=== PATIENT | male | born 1950 | race Caucasian/White ===

== ENCOUNTER 2016-09-03 03:01 | Emergency (ER) | payer OTHER ==
[2016-09-03] MEDS ORDERED: Aspirin 81 MG Tab.Chew PO ONE (03:12)
[2016-09-03] MEDS ORDERED: Sodium Chloride 0.9% 10 ML Syringe FLUSH PRN (03:13)
[2016-09-03] MEDS: Nitroglycerin 0.4 MG Tab.SL SL PRN ×2 (03:16→03:29)
[2016-09-03] MEDS ORDERED: Nitroglycerin/D5W 25 MG/250 ML BOTTLE ONE (03:22)
[2016-09-03] MEDS ORDERED: Clopidogrel 75 MG Tab PO ONE (03:25)
[2016-09-03] MEDS ORDERED: Nitroglycerin/D5W 25 MG/250 ML BOTTLE IV SCH (03:30)
[2016-09-03] MEDS ORDERED: Heparin Sodium 5,000 Units/ML Vial IVPUSH ONE (03:34)
--- NOTE | 2016-09-03 03:49 | EDM.PDOC ---
[id number] CHEST PAIN Time Seen by Provider: 09/03/16 03:05 Source: Reports: Patient History Limitations: Reports: No limitations - History of Present Illness INITIAL COMMENTS - FREE TEXT/NARRATIVE: Pt arrived with severe pain in the left arm. He had been awaken with the pain in the arm and got progressively worse. Timing/Duration: Reports: Hour(s):, Getting worse Location, General: Reports: upper extremity, left Associated Symptoms: Reports: other (pt was diaphoretic. ) - Related Data Allergies/ADRs: Allergies Allergy/AdvReac Type Severity Reaction Status Date / Time No Known Allergies Allergy Verified 09/03/16 03:17 Home Meds: Home Meds NK [No Known Home Meds] 12/21/14 [History] Social & Family History - Tobacco Use Smoking Status *Q: Heavy Tobacco Smoker Years of Tobacco use: 50 Packs/Tins Daily: 1 - Alcohol Use Days Per Week of Alcohol Use: 5 Number of Drinks Per Day: 2 Total Drinks Per Week: 10 - Recreational Drug Use Recreational Drug Use: No ED ROS GENERAL - Review of Systems Review Of Systems: See Below Constitutional: Reports: no symptoms HEENT: Reports: No symptoms Respiratory: Reports: No Symptoms Cardiovascular: Reports: Other (Pt has severe pain in the left arm. He was diaphoretic. He has not had a previous heart attack. ) Endocrine: Reports: no symptoms GI/Abdominal: Reports: No symptoms : Reports: no symptoms Musculoskeletal: Reports: no symptoms Skin: Reports: no symptoms Neurological: Reports: No Symptoms ED EXAM, GENERAL - Physical Exam Exam: See Below Free Text/Narrative:: Pt arrived with severe left arm pain. He was sweaty. Exam Limited By: No limitations General Appearance: alert, anxious, moderate distress Ears: normal TMs Nose: normal inspection Throat/Mouth: Normal inspection Head: atraumatic Neck: normal inspection Respiratory/Chest: no respiratory distress Cardiovascular: regular rate, rhythm GI/Abdominal: soft, non tender (Male) Exam: Deferred Rectal (Males) Exam: Deferred Back Exam: normal inspection Extremities: normal inspection Neurological: alert, oriented, normal cognition Psychiatric: normal affect Course - Vital Signs Last Recorded V/S: Last Vital Signs Temp 36.1 C 09/03/16 03:17 Pulse 69 09/03/16 03:31 Resp 14 09/03/16 03:31 BP 124/65 03/27/17 03:31 Pulse Ox 92 L 09/03/16 03:31 - Orders/Labs/Meds Labs: Laboratory Tests 09/03/16 09/03/16 09/03/16 Range/Units 03:12 03:12 03:12 WBC 9.2 (4.5-11.0) K/uL RBC 4.72 (4.30-5.90) M/uL Hgb 14.8 (12.0-15.0) g/dL Hct 43.2 (40.0-54.0) % MCV 92 (80-98) fL MCH 31 (27-31) pg MCHC 34 (32-36) % Plt Count 235 (150-400) K/uL Neut % (Auto) 51 (36-66) % Lymph % (Auto) 33 (24-44) % Lassen % (Auto) 11 H (2-6) % Eos % (Auto) 4 (2-4) % Baso % (Auto) 1 (0-1) % PT (9.5-12.0) sec INR (0.80-1.20) APTT (27.0-36.0) sec Sodium 137 L (140-148) mmol/L Potassium 5.9 H (3.6-5.2) mmol/L Chloride 102 (100-108) mmol/L Carbon Dioxide 26 (21-32) mmol/L Anion Gap 8.6 (5.0-14.0) mmol/L BUN 17 (7-18) mg/dL Creatinine 0.8 (0.8-1.3) mg/dL Est Cr Clr Drug Dosing 102.53 mL/min Estimated GFR (MDRD) > 60 (>60) BUN/Creatinine Ratio Cancelled Glucose 122 H (74-106) mg/dL Calcium 8.1 L (8.5-10.1) mg/dL Total Bilirubin 0.5 (0.2-1.0) mg/dL AST 60 H D (15-37) U/L ALT 24 (12-78) U/L Alkaline Phosphatase 109 (46-116) U/L Creatine Kinase 322 H (39-308) U/L Troponin I 0.269 H* (0.000-0.056) ng/mL Total Protein 7.4 (6.4-8.2) g/dL Albumin Cancelled Globulin Cancelled Albumin/Globulin Ratio Cancelled 09/03/16 09/03/16 Range/Units 03:30 03:32 WBC (4.5-11.0) K/uL RBC (4.30-5.90) M/uL Hgb (12.0-15.0) g/dL Hct (40.0-54.0) % MCV (80-98) fL MCH (27-31) pg MCHC (32-36) % Plt Count (150-400) K/uL Neut % (Auto) (36-66) % Lymph % (Auto) (24-44) % Lassen % (Auto) (2-6) % Eos % (Auto) (2-4) % Baso % (Auto) (0-1) % PT 10.1 (9.5-12.0) sec INR 0.95 (0.80-1.20) APTT 25.9 L (27.0-36.0) sec Sodium (140-148) mmol/L Potassium (3.6-5.2) mmol/L Chloride (100-108) mmol/L Carbon Dioxide (21-32) mmol/L Anion Gap (5.0-14.0) mmol/L BUN (7-18) mg/dL Creatinine (0.8-1.3) mg/dL Est Cr Clr Drug Dosing mL/min Estimated GFR (MDRD) (>60) BUN/Creatinine Ratio Glucose (74-106) mg/dL Calcium (8.5-10.1) mg/dL Total Bilirubin (0.2-1.0) mg/dL AST (15-37) U/L ALT (12-78) U/L Alkaline Phosphatase (46-116) U/L Creatine Kinase (39-308) U/L Troponin I (0.000-0.056) ng/mL Total Protein (6.4-8.2) g/dL Albumin Globulin Albumin/Globulin Ratio Meds: Medications Discontinued Medications Generic Name Dose Route Start Last Admin Trade Name Freq PRN Reason Stop Dose Admin Aspirin 324 mg 09/03/16 03:12 09/03/16 03:19 Aspirin PO 09/03/16 03:13 324 mg ONETIME ONE Administration Clopidogrel Bisulfate 600 mg 09/03/16 03:25 09/03/16 03:25 Plavix PO 09/03/16 03:26 600 mg ONETIME ONE Administration Heparin Sodium (Porcine) 4,000 units 09/03/16 03:34 09/03/16 03:35 Heparin Sodium IVPUSH 09/03/16 03:35 4,000 units ONETIME ONE Administration Nitroglycerin/Dextrose 25 mg in 250 mls @ 3 mls/hr 09/03/16 03:30 09/03/16 03 :29 Nitroglycerin 25 Mg/D5w 250 Ml IV 5 mcg/min TITRATE FUNMI 3 mls/hr Protocol Administration 5 MCG/MIN Nitroglycerin/Dextrose Confirm 09/03/16 03:22 09/03/16 03:31 Nitroglycerin 25 Mg/D5w 250 Ml Administered 09/03/16 03:23 Not Given Dose 25 mg in 250 mls @ as directed .ROUTE .STK-MED ONE Nitroglycerin 0.4 mg 09/03/16 03:13 09/03/16 03:29 Nitrostat SL 09/03/16 03:24 0.4 mg Q5M PRN Administration Chest Pain Sodium Chloride 10 ml 09/03/16 03:13 09/03/16 03:20 Saline Flush FLUSH 10 ml ASDIRECTED PRN Administration Keep Vein Open - Re-Assessments/Exams Free Text/Narrative Re-Assessment/Exam: 09/03/16 03:52 pt had acute inferlateral changes on the ekg. He was given asa 324, nitro which took his arm pain away. he had a tridil drip started. he was given plavix 600mg. Heparin bolus 4000units was given his chest xray revealed no infiltrate Departure - Departure Time of Disposition: 03:54 Disposition: DC/Tfer to Acute Hospital 02 Reason for Transfer *Q: Primary PCI Indicated Condition: fair Clinical Impression: Acute inferolateral myocardial infarction Referrals: PCP,None [Primary Care Provider] - Forms: ED Department Discharge Care Plan Goals: transfered to [facility] -- [place]
[2016-09-03 04:20] VITALS: BP 124/65
--- NOTE | 2016-09-03 09:17 | CR ---
Chest 1V Frontal HISTORY: Left arm pain. Comparison: 12/21/2014. FINDINGS: Cardiac size and pulmonary vessels are normal. The lungs are clear. IMPRESSION: Negative AP chest.
== END 2016-09-03 03:40 ==
LOC: JP.ED 03:01
DX: I21.19 ST elevation (STEMI) myocardial infarction involving other coronary artery of inferior wall (principal); F17.210 Nicotine dependence, cigarettes, uncomplicated
CPT/HCPCS: 36415; 71010; 80048; 82247; 82550; 84075; 84155; 84450; 84460; 84484; 85025; 85610; 85730; 93005; 96374; 99285; A9270; J1644; J7050

== ENCOUNTER 2017-01-12 20:00 | Emergency (ER) | payer OTHER ==
[2017-01-12 20:14] VITALS: BP 153/71
[2017-01-12] MEDS ORDERED: Proparacaine 0.5% Ophth Soln 15 ML Bottle EYEBOTH STA (20:20)
[2017-01-12] MEDS ORDERED: Diphtheria,Pertussis(Acell),Tetanus Vaccine 0.5 ML SDV IM ONE (20:46)
--- NOTE | 2017-01-12 20:53 | EDM.PDOC ---
ED HPI GENERAL MEDICAL PROBLEM - General Chief Complaint: ENT Problem Stated Complaint: MED VIA [facility] Time Seen by Provider: 01/12/17 20:20 Source of Information: Reports: Patient, Family, RN Notes Reviewed History Limitations: Reports: No Limitations - History of Present Illness INITIAL COMMENTS - FREE TEXT/NARRATIVE: 66-year-old gentleman presents emergency department today via EMS services for sudden onset of left thigh pain, he was at a restaurant SUDDEN ONSET EYE PAIN RATED IT 8 OUT OF 10 PAIN NOW HAS IMPROVED MAYBE 2 OUT OF 10 HE DID GET A EXACERBATION WITH PAIN WITH THE VISUAL ACUITY TEST BUT NOW HAS RESOLVED Left Eye Pain Score (Numeric/FACES): 1 - Related Data Allergies Allergy/AdvReac Type Severity Reaction Status Date / Time No Known Allergies Allergy Verified 09/03/16 03:17 Home Meds: Home Meds NK [No Known Home Meds] 12/21/14 [History] Past Medical History HEENT History: Reports: Impaired Vision Oncologic (Cancer) History: Reports: Basal Cell Carcinoma - Infectious Disease History Infectious Disease History: Reports: Chicken Pox - Past Surgical History Cardiovascular Surgical History: Reports: Coronary Artery Stent Social & Family History - Family History Family Medical History: Noncontributory - Tobacco Use Smoking Status *Q: Current Every Day Smoker Years of Tobacco use: 50 Packs/Tins Daily: 1 Used Tobacco, but Quit: No Second Hand Smoke Exposure: Yes - Caffeine Use Caffeine Use: Reports: Coffee - Alcohol Use Days Per Week of Alcohol Use: 7 Number of Drinks Per Day: 5 Total Drinks Per Week: 35 Date of Last Drink: 01/12/17 Time of Last Drink: 19:00 - Recreational Drug Use Recreational Drug Use: No ED ROS ENT - Review of Systems Review Of Systems: See Below Constitutional: Reports: No Symptoms HEENT: Reports: Eye Pain Respiratory: Reports: No Symptoms Cardiovascular: Reports: No Symptoms Neurological: Reports: No Symptoms ED EXAM, ENT - Physical Exam Exam: See Below Text/Narrative:: on examination using porcine stain on the castro lamp did appreciate a 5 mm x 2 mm corneal abrasion left eye Exam Limited By: No Limitations General Appearance: Alert, WD/WN, No Apparent Distress Eye Exam: Left Eye: Corneal Abrasion, Bilateral Eye: EOMI, Normal Inspection, PERRL Course - Vital Signs Last Recorded V/S: Last Vital Signs Temp 97.3 F 01/12/17 20:02 Pulse 59 L 01/12/17 20:02 Resp 18 01/12/17 20:02 BP 153/71 H 01/12/17 20:02 Pulse Ox 95 01/12/17 20:02 - Orders/Labs/Meds Orders: Active Orders 24 hr Category Date Time Status Vaccines to be Administered [RC] PER UNIT ROUTINE Care 01/12/17 20:46 Ordered Meds: Medications Discontinued Medications Generic Name Dose Route Start Last Admin Trade Name Segundo PRN Reason Stop Dose Admin Diphtheria/Tetanus/Acell Pertussis 0.5 ml 01/12/17 20:46 Adacel IM 01/12/17 20:47 .ONCE ONE Proparacaine HCl 1 ml 01/12/17 20:20 01/12/17 20:38 Proparacaine 0.5% Ophth Soln EYEBOTH 01/12/17 20:21 2 drop NOW STA Administration Departure - Departure Time of Disposition: 20:52 Disposition: Home, Self-Care 01 Condition: Good Clinical Impression: Corneal abrasion, left Qualifiers: Encounter type: initial encounter Qualified Code(s): S05.02XA - Injury of conjunctiva and corneal abrasion without foreign body, left eye, initial encounter - Discharge Information Forms: ED Department Discharge Additional Instructions: Take full course of antibiotics, use ibuprofen for baseline pain control, use hydrocodone for breakthrough pain, please follow-up with your eye care provider next week for reevaluation 2-3 days - My Orders Last 24 Hours: My Active Orders 01/12/17 20:46 Vaccines to be Administered [RC] PER UNIT ROUTINE - Assessment/Plan Last 24 Hours: My Active Orders 01/12/17 20:46 Vaccines to be Administered [RC] PER UNIT ROUTINE Plan: Assessment Acuity = acute Site and laterality = corneal abrasion left eye Etiology = secondary to trauma Manifestations = pain Location of injury = Home Lab values = none Plan He is placed on gentamicin ophthalmic drops, was provided a tetanus for update and [id number] with his eye care provider on Saturday of Saturday of this week also provided hydrocodone No. 10 for pain Patient was in agreement with the plan all questions were answered, they were instructed to return to the emergency department or call for worsening symptoms. This note was dictated using [employer] voice recognition software please call with any questions.
== END 2017-01-12 21:08 | disposition home or self-care (01) ==
LOC: JP.ED 20:00
DX: S05.02XA Injury of conjunctiva and corneal abrasion without foreign body, left eye, initial encounter (principal); F17.210 Nicotine dependence, cigarettes, uncomplicated; Z85.828 Personal history of other malignant neoplasm of skin; Z95.5 Presence of coronary angioplasty implant and graft; X58.XXXA Exposure to other specified factors, initial encounter
CPT/HCPCS: 90471; 90715; 99284; A9270

== ENCOUNTER 2017-07-05 07:22 | Day surgery (SDC) | payer MEDICARE, BC ==
[2017-07-05] MEDS ORDERED: Lactated Ringers 1,000 ML IV SCH (08:00)
[2017-07-05] MEDS ORDERED: fentaNYL 100 MCG/2 ML SDV ONE (09:06)
[2017-07-05] MEDS ORDERED: Midazolam 1 MG/ML 2 ML SDV ONE (09:06)
[2017-07-05] MEDS ORDERED: Propofol 200 MG/20 ML SDV ONE (09:06)
[2017-07-05 10:38] VITALS: BP 124/66
--- NOTE | 2017-07-05 12:12 | OR ---
DATE OF PROCEDURE: 07/05/2017 PREOPERATIVE DIAGNOSIS: Colon cancer screening. POSTOPERATIVE DIAGNOSIS: Three small colon polyps. PROCEDURE: Colonoscopy to the cecum with biopsy resection of small polyps at 15 , 20, and 40 cm from the anal verge. SURGEON: Caleb Akhtar MD. ANESTHESIA: IV anesthesia with monitored anesthesia care. INDICATION: This 67-year-old white male is referred for a screening colonoscopy. He says his last colonoscopic exam was done more than ten years ago. I counseled him for a colonoscopy with possible biopsy and/or polypectomy including risks and alternatives, and he gave his informed consent to proceed. DESCRIPTION OF PROCEDURE: The patient was placed in the left lateral decubitus position. IV anesthesia was administered by the Anesthesia Service. Time-out was held. A rectal exam was performed, which was unremarkable. The flexible fiberoptic Olympus colonoscope was introduced through his anus, up his rectum, and out his colon all the way to the cecum. En route, at 20 cm from anal verge and at 40 cm from anal verge, we saw small polyps, which were removed with the biopsy forceps. Once the cecum was reached, the scope was slowly withdrawn, examining the mucosa throughout. No other mucosal abnormalities were noted until we reached 15 cm from anal verge. Here, we saw another small polyp, which was removed with the biopsy forceps. All polyps were sent separately to the laboratory. The scope was retroflexed in the rectum with the distal rectum appearing unremarkable. The scope was straightened and removed. He tolerated the procedure well. Caleb Akhtar MD /[id number] MTDD
== END 2017-07-05 10:40 | disposition home or self-care (01) ==
LOC: JP.SDS 07:22
PROVIDERS: ATTEND Surgery
DX: Z12.11 Encounter for screening for malignant neoplasm of colon (principal); D12.6 Benign neoplasm of colon, unspecified; K63.5 Polyp of colon; I25.10 Atherosclerotic heart disease of native coronary artery without angina pectoris; F32.9 Major depressive disorder, single episode, unspecified; E66.9 Obesity, unspecified; I25.2 Old myocardial infarction; Z88.8 Allergy status to other drugs, medicaments and biological substances
CPT/HCPCS: 45380; J2250; J2704; J3010; J7120; 88305

== ENCOUNTER 2019-12-06 09:32 | Emergency (ER) | payer MEDICARE, BC ==
[2019-12-06 09:46] VITALS: BP 118/68; PULSE 66
--- NOTE | 2019-12-06 10:01 | EDM.PDOC ---
ED HPI GENERAL MEDICAL PROBLEM - General Chief Complaint: General Stated Complaint: GLASS IN RT FOOT Time Seen by Provider: 12/06/19 09:57 Source of Information: Reports: Patient, RN Notes Reviewed History Limitations: Reports: No Limitations - History of Present Illness INITIAL COMMENTS - FREE TEXT/NARRATIVE: 69-year-old gentleman presents emergency department today with concern about a piece of glass in his right foot Done this a couple of days ago, he thought he got it all out but still is feeling something in that area - Related Data Allergies Allergy/AdvReac Type Severity Reaction Status Date / Time No Known Allergies Allergy Verified 12/06/19 09:47 Home Meds: Home Meds Aspirin [Halfprin] 81 mg PO DAILY 07/03/17 [History] Clopidogrel [Plavix] 75 mg PO DAILY 07/03/17 [History] Nicotine Polacrilex [Nicorette] 1 stick PO ASDIRECTED PRN 07/03/17 [History] atorvaSTATin Calcium [Atorvastatin Calcium] 40 mg PO DAILY 07/03/17 [History] carvediloL [Carvedilol] 3.125 mg PO BID 07/03/17 [History] Past Medical History HEENT History: Reports: Impaired Vision Cardiovascular History: Reports: High Cholesterol, Hypertension Psychiatric History: Reports: Depression Endocrine/Metabolic History: Reports: Obesity/BMI 30+ Oncologic (Cancer) History: Reports: Basal Cell Carcinoma - Infectious Disease History Infectious Disease History: Reports: Measles - Past Surgical History Head Surgeries/Procedures: Reports: None HEENT Surgical History: Reports: Tonsillectomy Cardiovascular Surgical History: Reports: Coronary Artery Stent GI Surgical History: Reports: Colonoscopy Endocrine Surgical History: Reports: None Oncologic Surgical History: Reports: None Dermatological Surgical History: Reports: None Social & Family History - Family History Family Medical History: Noncontributory - Tobacco Use Smoking Status *Q: Current Every Day Smoker Years of Tobacco use: 50 Packs/Tins Daily: 1 Used Tobacco, but Quit: No Second Hand Smoke Exposure: No - Caffeine Use Caffeine Use: Reports: Coffee - Alcohol Use Days Per Week of Alcohol Use: 6 Number of Drinks Per Day: 3 Total Drinks Per Week: 18 - Recreational Drug Use Recreational Drug Use: No ED ROS GENERAL - Review of Systems Review Of Systems: See Below Musculoskeletal: Reports: Foot Pain Skin: Reports: Wound ED EXAM, GENERAL - Physical Exam Exam: See Below Free Text/Narrative:: Examination of the right foot I do appreciate a wound on the plantar surface that appears healed I cannot palpate any foreign body, pedal pulses +2 there is tenderness over the area of concern it is located metatarsal region between digits 2 and 3 Course - Vital Signs Last Recorded V/S: Last Vital Signs Temp 99.0 F 12/06/19 09:48 Pulse 66 12/06/19 09:48 Resp 17 12/06/19 09:48 BP 118/68 12/06/19 09:48 Pulse Ox 95 12/06/19 09:48 - Orders/Labs/Meds Orders: Active Orders 24 hr Category Date Time Status Foot Comp Min 3V Rt [CR] Stat Exams 12/06/19 09:59 Taken Departure - Departure Time of Disposition: 10:47 Disposition: Home, Self-Care 01 Condition: Good Clinical Impression: Right foot pain - Discharge Information Instructions: Foot Pain Referrals: Nik Lane MD [Primary Care Provider] - Forms: ED Department Discharge Additional Instructions: Continue with symptomatic care, radiology will read your film tomorrow, if radiology feels there is a foreign body we will contact you for an appropriate referral to podiatry for further treatment Sepsis Event Note (ED) - Evaluation Sepsis Screening Result: No Definite Risk - Focused Exam Vital Signs: Vital Signs Temp Pulse Resp BP Pulse Ox 12/06/19 09:48 99.0 F 66 17 118/68 95 12/06/19 09:45 99.0 F 66 17 118/68 95 - My Orders Last 24 Hours: My Active Orders 12/06/19 09:59 Foot Comp Min 3V Rt [CR] Stat - Assessment/Plan Last 24 Hours: My Active Orders 12/06/19 09:59 Foot Comp Min 3V Rt [CR] Stat Plan: Assessment Acuity = acute Site and laterality = right foot pain Etiology = trauma with a piece of glass Manifestations = none Location of injury = Home Lab values = foot x-ray I did review films myself I cannot appreciate any acute process, the official read from radiology is pending Plan He is going to do watchful waiting at this time, we will contact him if the radiology read differs than myself if radiology finds a foreign body he will need a referral to podiatry This note was dictated using [employer] voice recognition software please call with any questions on syntax or grammar.
--- NOTE | 2019-12-07 11:07 | CR ---
FOOT RIGHT 3 views CLINICAL HISTORY:Stepped on glass, question foreign body FINDINGS:No fracture or osseous lesion is seen. There is no evidence of a radiopaque foreign body in the region of the first MTP joint. Patient does have hammertoe deformities. 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
== END 2019-12-06 10:58 | disposition home or self-care (01) ==
LOC: JP.ED 09:32
DX: M79.671 Pain in right foot (principal); E78.00 Pure hypercholesterolemia, unspecified; I10 Essential (primary) hypertension; E66.9 Obesity, unspecified; Z68.31 Body mass index [BMI] 31.0-31.9, adult; F17.210 Nicotine dependence, cigarettes, uncomplicated; Z79.82 Long term (current) use of aspirin; Z79.02 Long term (current) use of antithrombotics/antiplatelets; Z79.899 Other long term (current) drug therapy
CPT/HCPCS: 73630-26-RT; 73630-RT; 99283

== ENCOUNTER 2020-07-02 09:35 | Emergency (ER) | payer MEDICARE, BC ==
[2020-07-02 09:54] VITALS: BP 138/47; PULSE 58
--- NOTE | 2020-07-02 10:40 | EDM.PDOC ---
ED HPI GENERAL MEDICAL PROBLEM - General Chief Complaint: Lower Extremity Injury/Pain Stated Complaint: RIGHT LEG INFECTED Time Seen by Provider: 07/02/20 10:00 Source of Information: Reports: Patient, RN History Limitations: Reports: No Limitations - History of Present Illness INITIAL COMMENTS - FREE TEXT/NARRATIVE: 70-year-old male living independently alone comes now because he notes a little linear abrasion on the right magaña at about the area of the top of the sock. From an abrasion effect of the sock. He has notable edema of the lower leg that is the results are related to the abrasion. However he has similar notable pitting edema of the left lower leg as well somewhat reduced now because of the effect of the sock he is wearing. Pitting edema is almost a 3+ bilaterally. There is no increased redness or tenderness or warmth in the area of the abrasion which is about a 2 cm superficial abrasion. He says he is not hypertensive [place] kidney disease but he is on Coreg and lisinopril and atorvastatin. He also recently added citalopram for depression secondary to anxiety and depression relative loss of a partner. He denies shortness of breath dyspnea on exertion or chest pain. He sleeps okay. He continues to smoke although he has been trying to stop. He is unaware that he has hypertension although he has medications for it. He also complains of muscle weakness which may be relative to his atorvastatin - Related Data Allergies Allergy/AdvReac Type Severity Reaction Status Date / Time No Known Allergies Allergy Verified 07/02/20 09:53 Home Meds: Home Meds Aspirin [Halfprin] 81 mg PO DAILY 07/03/17 [History] atorvaSTATin Calcium [Atorvastatin Calcium] 40 mg PO DAILY 07/03/17 [History] carvediloL [Carvedilol] 3.125 mg PO BID 07/03/17 [History] Citalopram [Citalopram HBr] 20 mg PO DAILY 07/02/20 [History] lisinopriL [Prinivil] 1 tab PO DAILY 07/02/20 [History] Past Medical History HEENT History: Reports: Impaired Vision Cardiovascular History: Reports: High Cholesterol, Hypertension Respiratory History: Reports: Sleep Apnea Other Respiratory History: cpap Gastrointestinal History: Reports: None Psychiatric History: Reports: Depression Endocrine/Metabolic History: Reports: Obesity/BMI 30+ Oncologic (Cancer) History: Reports: Basal Cell Carcinoma - Infectious Disease History Infectious Disease History: Reports: Measles - Past Surgical History Head Surgeries/Procedures: Reports: None HEENT Surgical History: Reports: Tonsillectomy Cardiovascular Surgical History: Reports: Coronary Artery Stent Respiratory Surgical History: Reports: None GI Surgical History: Reports: Colonoscopy Endocrine Surgical History: Reports: None Oncologic Surgical History: Reports: None Dermatological Surgical History: Reports: None Social & Family History - Family History Family Medical History: No Pertinent Family History - Tobacco Use Tobacco Use Status *Q: Current Every Day Tobacco User Years of Tobacco use: 50 Packs/Tins Daily: 1 Used Tobacco, but Quit: No Second Hand Smoke Exposure: No - Caffeine Use Caffeine Use: Reports: Coffee - Alcohol Use Days Per Week of Alcohol Use: 7 Number of Drinks Per Day: 4 Total Drinks Per Week: 28 - Recreational Drug Use Recreational Drug Use: No Review of Systems - Review of Systems Review Of Systems: See Below Constitutional: Reports: No Symptoms Eyes: Reports: No Symptoms Ears: Reports: No Symptoms Nose: Reports: No Symptoms Mouth/Throat: Reports: No Symptoms Respiratory: Reports: No Symptoms Cardiovascular: Reports: No Symptoms GI/Abdominal: Reports: No Symptoms Genitourinary: Reports: No Symptoms Musculoskeletal: Reports: Other (Notes muscle weakness) Skin: Reports: Erythema, Wound Neurological: Reports: No Symptoms Psychiatric: Reports: No Symptoms ED EXAM, GENERAL - Physical Exam Exam: See Below Free Text/Narrative:: 70-year-old male sitting quietly on the gurney with relatively normal vital signs. He does not rehab distress but has some anxiety. He has had exam with a mask on appears to show no abnormalities of the head and crown nor obvious of the face. His neck is supple normal range of motion His chest is clear with a regular rate and rhythm without rales His abdomen is soft large. Extremities do not have deformity but he does have about a 3+ pitting edema of the lower extremities but does not appear to have it up to the sacral area. Skin does show about a 2 cm linear superficial abrasion mid magaña on the right without any notable erythema or warmth and does not appear responsible for the edema that he has Neurologic physiologic and moves all extremities normally. Walks normally. Exam Limited By: No Limitations General Appearance: Alert, WD/WN, No Apparent Distress, Anxious Course - Vital Signs Text/Narrative:: I spent a fair amount of time with him discussing his medications which appears to be for hypertension. Also discussed in detail with smoking which counters the effect of his antihypertensives but he has trouble stopping. He does have a basically bag balm at home that he says has improved the wound since he started using it. That probably works as well as any other things I can give him right now and I would encourage him to continue to use that. However he does need to follow-up with Dr. Lane in the office to consider the cause and/or treatment for his notable edema. He may benefit from Lasix or diuretic but does not want start that today Last Recorded V/S: Last Vital Signs Temp 36.8 C 07/02/20 09:58 Pulse 58 L 07/02/20 09:58 Resp 15 07/02/20 09:58 BP 138/47 L 07/02/20 09:58 Pulse Ox 95 07/02/20 09:58 Departure - Departure Time of Disposition: 10:40 Disposition: Home, Self-Care 01 Condition: Good Clinical Impression: Edema, Abrasion - Discharge Information Instructions: Wound Care, Adult, Edema, [id number] Referrals: PCP,None [Primary Care Provider] - Forms: ED Department Discharge Additional Instructions: You have swelling of your legs which appears to be chronic in nature with a localized skin inflammation. You need follow-up for the edema and follow-up on the abrasion Sepsis Event Note (ED) - Evaluation Sepsis Screening Result: No Definite Risk - Focused Exam Vital Signs: Vital Signs Temp Pulse Resp BP Pulse Ox 07/02/20 09:58 36.8 C 58 L 15 138/47 L 95 07/02/20 09:52 36.8 C 58 L 15 138/47 L 95
== END 2020-07-02 10:42 | disposition home or self-care (01) ==
LOC: JP.ED 09:35
DX: S80.811A Abrasion, right lower leg, initial encounter (principal); R60.0 Localized edema; F17.200 Nicotine dependence, unspecified, uncomplicated; E78.00 Pure hypercholesterolemia, unspecified; I10 Essential (primary) hypertension; E66.9 Obesity, unspecified; Z68.34 Body mass index [BMI] 34.0-34.9, adult; Z79.82 Long term (current) use of aspirin; Z79.899 Other long term (current) drug therapy; X58.XXXA Exposure to other specified factors, initial encounter
CPT/HCPCS: 99282; 99284

== ENCOUNTER 2022-07-04 08:51 | Emergency (ER) | payer MEDICARE, BC ==
[2022-07-04 09:18] VITALS: BP 133/48; PULSE 58
[2022-07-04] MEDS ORDERED: Ketorolac 30 MG/ML SDV IM ONE (09:27)
[2022-07-04 10:11] LABS: TROPONIN I HIGH SENSITIVITY 8.5 pg/mL (<=60.3)
== END 2022-07-04 10:46 | disposition home or self-care (01) ==
LOC: JP.ED 08:51
DX: R07.89 Other chest pain (principal); I25.10 Atherosclerotic heart disease of native coronary artery without angina pectoris; E78.00 Pure hypercholesterolemia, unspecified; I10 Essential (primary) hypertension; I25.2 Old myocardial infarction; F17.210 Nicotine dependence, cigarettes, uncomplicated; E66.9 Obesity, unspecified; Z68.34 Body mass index [BMI] 34.0-34.9, adult; Z86.16 Personal history of COVID-19; Z95.5 Presence of coronary angioplasty implant and graft; Z88.8 Allergy status to other drugs, medicaments and biological substances; Z79.82 Long term (current) use of aspirin; Z79.899 Other long term (current) drug therapy
CPT/HCPCS: 36415; 71045; 71045-26; 80048; 84484; 85025; 93005; 93010; 96372; 99283; 99285; J1885

== ENCOUNTER 2022-11-28 06:53 | Day surgery (SDC) | payer MEDICARE, BC ==
[2022-11-28] MEDS ORDERED: fentaNYL 50 MCG/ML SDV ONE (07:24)
[2022-11-28] MEDS ORDERED: Midazolam 1 MG/ML 2 ML SDV ONE (07:24)
[2022-11-28] MEDS ORDERED: Propofol 200 MG/20 ML SDV ONE (07:24)
[2022-11-28] MEDS ORDERED: Lactated Ringers 1,000 ML IV SCH (07:30)
[2022-11-28 07:41] LABS: HEMATOCRIT 43.3 % (38.4-49.7); MEAN CORPUSCULAR HEMOGLOBIN 32.6 pg (31.6-35.5); MEAN CORPUSCULAR HGB CONC 34.6 g/dL (31.6-35.5); MEAN CORPUSCULAR VOLUME 94.1 fL (81.4-99.0); RED BLOOD CELL COUNT 4.6 M/uL (4.14-5.76); WHITE BLOOD CELL COUNT,WBC 7.4 K/uL (3.2-11.0)
[2022-11-28 08:25] LABS: ANION GAP 14.7 mmol/L (5.0-14.0); CALCIUM 8.6 mg/dL (8.5-10.1); CREATININE 0.9 mg/dL (0.8-1.3); EST CRCL DRUG DOSING (CG) 81.34 mL/min; POTASSIUM,K 3.7 mmol/L (3.6-5.2)
[2022-11-28 11:25] VITALS: BP 153/63; PULSE 62
== END 2022-11-28 11:20 | disposition home or self-care (01) ==
LOC: JP.SDS 06:53
PROVIDERS: ATTEND Student in an Organized Health Care Education/Training Program
DX: D12.3 Benign neoplasm of transverse colon (principal); Z86.010 Personal history of colon polyps; Z79.899 Other long term (current) drug therapy; Z88.8 Allergy status to other drugs, medicaments and biological substances
CPT/HCPCS: 36415; 45380; 80048; 85027; 88305; 93005; 93010; J2250; J2704; J3010; J7120

== ENCOUNTER 2022-12-09 09:03 | Emergency (ER) | payer MEDICARE, BC ==
[2022-12-09 09:17] VITALS: BP 142/85; PULSE 67
[2022-12-09] MEDS ORDERED: Doxycycline 100 MG Cap PO ONE (09:35)
== END 2022-12-09 09:47 | disposition home or self-care (01) ==
LOC: JP.ED 09:03
DX: S80.861A Insect bite (nonvenomous), right lower leg, initial encounter (principal); I25.10 Atherosclerotic heart disease of native coronary artery without angina pectoris; I10 Essential (primary) hypertension; I25.2 Old myocardial infarction; E78.00 Pure hypercholesterolemia, unspecified; M19.90 Unspecified osteoarthritis, unspecified site; E66.9 Obesity, unspecified; F17.210 Nicotine dependence, cigarettes, uncomplicated; Z68.33 Body mass index [BMI] 33.0-33.9, adult; Z86.16 Personal history of COVID-19; Z88.8 Allergy status to other drugs, medicaments and biological substances; Z79.82 Long term (current) use of aspirin; Z79.899 Other long term (current) drug therapy; W57.XXXA Bitten or stung by nonvenomous insect and other nonvenomous arthropods, initial encounter
CPT/HCPCS: 99281; A9270